=== PATIENT | male | born 2000 | race Caucasian/White ===

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

== ENCOUNTER 2020-11-30 10:02 | Emergency (ER) | payer OTHER ==
[~2020-11-30] VITALS: Ht 170.2 cm; Wt 100.0 kg
[2020-11-30 10:11] VITALS: BP 129/75; Ht 170.2 cm; Wt 100.0 kg
[2020-11-30] MEDS ORDERED: CLINDAMYCIN HC300 MG PO (10:52)
== END 2020-11-30 11:33 | disposition home or self-care (01) ==
LOC: D.ER 10:02
DX: K04.7 Periapical abscess without sinus (principal)